=== PATIENT | female | born 1985 | race Caucasian/White ===

== ENCOUNTER 2018-05-10 23:16 | Emergency (ER) | payer SELFPAY ==
[~2018-05-10] VITALS: Ht 160 cm; Wt 80.7 kg
[2018-05-11 00:02] LABS: HEMATOCRIT 40.9 % (36.0-46.0); HEMOGLOBIN 14.5 G/DL (11.9-15.5); MCHC 35.5 G/DL (30.0-36.0); PLATELET COUNT 312 K/uL (156-360); RBC DIS.WIDTH-CV 11.6 % (11.8-14.6); RBC DIS.WIDTH-SD 39.1 % (39-53); WHITE BLOOD COUNT 7.9 K/uL (4.1-10.2)
[2018-05-11 00:12] LABS: ALBUMIN 4.8 g/dL (3.2-4.8); CHLORIDE 107 mEq/L (99-109); POTASSIUM 3.9 mEq/L (3.7-5.4); SODIUM 140 mEq/L (136-147)
[2018-05-11 00:15] LABS: GLUCOSE 100 mg/dL (70-99); TOTAL PROTEIN 7.8 g/dL (6.4-8.3)
[2018-05-11 00:17] LABS: TOTAL BILIRUBIN 0.3 mg/dL (0.0-1.0)
[2018-05-11 00:18] LABS: ALKALINE PHOSPHATASE 91 IU/L (3-129); CREATININE 0.8 mg/dL (0.6-1.3)
[2018-05-11 00:20] LABS: AST (GOT) 30 IU/L (2-34); UREA NITROGEN (BUN) 8 mg/dL (9-23)
[2018-05-11 00:21] LABS: ALT (GPT) 33 IU/L (3-49)
[2018-05-11 00:22] LABS: LIPASE 13 U/L (1.0-51.0)
[2018-05-11 00:28] LABS: QUANTITATIVE HCG < 4.0 MIU/ML
[2018-05-11 00:34] LABS: GFR ESTIMATE (CALCULATED) > 59 mL/min/
[2018-05-11 03:01] LABS: APPEARANCE CLEAR ((CLEAR)); BILIRUBIN NEGATIVE; BLOOD NEGATIVE; COLOR YELLOW ((YELLOW)); GLUCOSE (STRIP) NEGATIVE; KETONES NEGATIVE; LEUKOCYTES SMALL; NITRITE NEGATIVE; PROTEIN (STRIP) NEGATIVE; SPECIFIC GRAVITY 1.017 (1.000-1.030); UROBILINOGEN 0.2 MG/DL (0.2-1.0)
[2018-05-11 03:04] LABS: BACTERIA RARE /HPF; EPITHELIAL CELLS 1+ /HPF; MUCUS TRACE /LPF; RED BLOOD CELLS 0-5 /HPF (0-5); UCUL ADDED? YES
[2018-05-11] MEDS ORDERED: NEXIUM20 MG PO (04:32)
[2018-05-11 05:19] VITALS: BP 127/79
== END 2018-05-11 05:19 | disposition home or self-care (01) ==
LOC: EME 23:16
DX: R10.30 Lower abdominal pain, unspecified (principal); K92.1 Melena
CPT/HCPCS: 74177; 80053; 81003; 83690; 84702; 85027; 86850; 86900; 86901; 87086; 99281; 99285; J7030